=== PATIENT | male | born 1955 | race Caucasian/White ===

== ENCOUNTER 2024-01-19 10:03 | Outpatient (AMB) | payer BC, SELFPAY ==
--- NOTE | 2024-01-19 10:12 | MHC.OFFWIV ---
Intake Vital Signs 01/19/24 10:16 01/19/24 10:21 Height 5 ft 8 in Weight 212 lb BMI 32.2 BP 144/80 H 146/73 H Blood Pressure Location Rt brachial Rt brachial Position Sitting Sitting Respiration 14 Pulse 87 Pulse Source Pulse Oximeter Temp 98.8 F Temp Source Oral Pulse Oximetry (%) 98 Oxygen Delivery Method Room Air Intake Visit Reasons: Pain in Right leg to foot Intake Note: Pain in right leg and foot. Allergies No Known Allergies [No Known Allergies*] Allergy (Verified 01/19/24 10:47) Medication List - Last Reconciled 01/19/24 by Faby Rebollar, RECYCLING COORDINATOR- apixaban (Eliquis) 5 mg PO BID atorvastatin 20 mg PO DAILY empagliflozin (Jardiance) 25 mg PO DAILY lisinopril 20 mg PO DAILY metformin ER 750 mg PO BID metoprolol succinate ER 50 mg PO DAILY omeprazole 20 mg PO DAILY Do you need a note to return to daycare/school/sports/work: No HPI HPI Comments History of Present Illness Details 68-year-old male here today with chief complaints of right-sided back pain. He reports that he was in his normal state of health last night. Upon waking this morning he had pain in his right lower back that radiates to his thigh inner and outer aspect and then down to his toes. The right back hurts to the touch. Movements generally speaking worse in the pain. Pain with walking. denies overt injury to back, surgical hx, fever, chills, rash, bowel or bladder incon, saddle parasthesia or other red flag signs assoc w back pain. Exam Awake alert oriented, uncomfortable but in no acute distress Antalgic gait favoring the right leg Pain with gentle palpation over the right SI joint, pain with all range of motion, lying to sitting sitting to standing sitting to lying. Able to perform straight leg raise but with pain in the right low back. Pain relief with traction on the right leg. Short lived relief w/ manual manipulation which he tolerated well. Admits the pain is not as severe after this however it remains. No edema of RLE, + pulses, neurovasc intact. No spinal tenderness Plan: Medrol Dosepak and muscle relaxer. Educated to take with food. Educated about the hyperglycemia caused by steroids. Recommend follow up with chiropractor for manipulation. Educated on reasons to return to the office. Physical Exam Vital Signs: Last Vital Signs Temp 98.8 F 01/19/24 10:16 Pulse 87 01/19/24 10:16 Resp 14 01/19/24 10:16 BP 146/73 H 01/19/24 10:21 Pulse Ox 98 01/19/24 10:16 Oxygen Delivery Method Room Air 01/19/24 10:16 BMI result Body Mass Index 32.2 Assessment & Plan Assessment & Plan (1) Derangement of right SI joint: Code(s): M24.9 - Joint derangement, unspecified Plan: . Plan This note is constructed using voice recognition software. While every effort has been made to ensure accuracy in hopper feeder, still errors may have been included Sometimes, these errors may affect the content or meaning of the given sentence . Total time spent caring for the patient today was 30 minutes. This includes time spent before the visit reviewing the chart, time spent during the visit, and time spent after the visit on documentation Orders: Referrals Chiropractic Referral M24.9 - Joint derangement, unspecified Medications: New methylprednisolone (Medrol (Ron)) PO PER PKG DIR 21 ea 0RF tizanidine (Zanaflex) 4 mg PO TID PRN 30 tabs 0RF muscle spasticity Coding Level of Care Code Est Pt Level 4 (92424) Diagnoses Derangement of right SI joint M24.9
[2024-01-19 10:16] VITALS: BP 144/80; PULSE 87; RESP 14; TEMP 37.1; O2SAT 98; BMI 32.2
[2024-01-19 10:21] VITALS: BP 146/73
== END 2024-01-19 11:06 | disposition home or self-care (01) ==
PROVIDERS: Visit Provider Nurse Practitioner Family
DX: M24.9 Joint derangement, unspecified (principal)
CPT/HCPCS: 99214